=== PATIENT | male | born 1965 | race Caucasian/White ===

== ENCOUNTER 2025-02-22 13:29 | Emergency (ER) | payer OTHER ==
[2025-02-22 14:46] LABS: BASOPHILS ABSOLUTE AUTO 0.10 K/uL (0.00-0.10); BASOPHILS PERCENT AUTO 0.7 % (0.1-1.3); EOSINOPHILS ABSOLUTE AUTO 0.56 K/uL (0.00-0.40); EOSINOPHILS PERCENT AUTO 3.8 % (0.0-5.4); IMMATURE GRAN ABSOLUTE AUTO 0.37 K/uL (0.00-0.23); IMMATURE GRAN PERCENT AUTO 2.5 % (0.0-0.7); LYMPHOCYTES ABSOLUTE AUTO 3.21 K/uL (0.8-3.3); LYMPHOCYTES PERCENT AUTO 21.9 % (11.4-47.7); MONOCYTES ABSOLUTE AUTO 1.30 K/uL (0.20-0.90); MONOCYTES PERCENT AUTO 8.9 % (3.3-12.6); NEUTROPHILS ABSOLUTE AUTO 9.12 K/uL (1.0-7.6); NEUTROPHILS PERCENT AUTO 62.2 % (40.0-78.1); PLATELET COUNT,PLT 224 K/uL (130-375); RED BLOOD CELL COUNT 4.66 M/uL (4.14-5.76); WHITE BLOOD CELL COUNT,WBC 14.7 K/uL (3.2-11.0)
[2025-02-22 14:58] LABS: BASE EXCESS ARTERIAL 1.9 mm/L; BICARBONATE,ARTERIAL 26.2 mmol/L (22.0-26.0); O2 SATURATION ARTERIAL 92.6 % (95.0-98.0); OXYHEMOGLOBIN 90.9 %; PCO2 ARTERIAL 41.4 mmHg (35.0-42.0); PO2 ARTERIAL 66.6 mmHg (75.0-100.0); TOTAL HEMOGLOBIN 15.2 g/dL (13.5-18.0)
[2025-02-22 15:04] LABS: INR 1.0
[2025-02-22 15:14] LABS: TROPONIN I HIGH SENSITIVITY 17.8 pg/mL (<=60.3)
[2025-02-22 15:16] LABS: A/G RATIO 1.2 (1.2-2.2); ALANINE AMINOTRANSFERASE,ALT 41 U/L (12-78); ASPARTATE AMNIOTRANSFERASE,AST 24 U/L (15-37); BILIRUBIN TOTAL 0.7 mg/dL (0.2-1.0); BLOOD UREA NITROGEN,BUN 10 mg/dL (7-18); CARBON DIOXIDE,CO2 31 mmol/L (21-32); CHLORIDE,CL 101 mmol/L (100-108); CREATININE 1.0 mg/dL (0.8-1.3); EST CRCL DRUG DOSING (CG) 89.46 mL/min; ESTIMATED GFR 88 mL/min (>60); GLUCOSE RANDOM 207 mg/dL (74-106); POTASSIUM,K 3.9 mmol/L (3.6-5.2); PRO B-TYPE NATRIUR PEPT,BNPPRO 35 pg/mL (5-125); PROTEIN TOTAL,TP 6.5 g/dL (6.4-8.2); SODIUM,NA 139 mmol/L (140-148)
[2025-02-22 15:24] LABS: CORONAVIRUS COVID-19 NAA NEGATIVE (NEGATIVE); INFLUENZA A NAA NEGATIVE (NEGATIVE); INFLUENZA B NAA NEGATIVE (NEGATIVE); RESPIRATORY SYNCYTIAL VIR NAA NEGATIVE (NEGATIVE)
[2025-02-22] MEDS: Iopamidol 612 MG/ML 100 ML Bottle IV SCH (16:37)
[2025-02-22 17:13] LABS: APPEARANCE,URINE CLEAR (CLEAR); GLUCOSE,URINE NEGATIVE (NEGATIVE); OCCULT BLOOD,URINE NEGATIVE (NEGATIVE)
[2025-02-22 17:18] LABS: SQUAMOUS EPITHELIAL CELLS,UR NOT SEEN /HPF; UROTHELIAL CELLS,URINE NOT SEEN /HPF
== END 2025-02-22 18:25 | disposition home or self-care (01) ==
LOC: JP.ED 13:29
DX: R05.9 Cough, unspecified (principal); R60.0 Localized edema; I10 Essential (primary) hypertension; E78.00 Pure hypercholesterolemia, unspecified; Z95.5 Presence of coronary angioplasty implant and graft; Z90.49 Acquired absence of other specified parts of digestive tract; Z88.8 Allergy status to other drugs, medicaments and biological substances; Z79.82 Long term (current) use of aspirin; Z79.899 Other long term (current) drug therapy
CPT/HCPCS: 36415; 36600; 71260; 80053; 81001; 82803; 83605; 83735; 83880; 84484; 85025; 85379; 85610; 86140; 87637; 93005; 99285; Q9967